=== PATIENT | female | born 1960 | race Caucasian/White ===

== ENCOUNTER 2016-07-30 11:02 | Emergency (ER) | payer OTHER ==
[2016-07-30 11:15] VITALS: BP 122/76
--- NOTE | 2016-07-30 12:26 | UC ---
Respiratory Complaint HPI - HPI Summary HPI Summary: 56 yo female with cough x 5-7 days now wheezing has had to use her rescue inhaler - History of Current Complaint Chief Complaint: UCGeneralIllness Stated Complaint: COUGH,CONGESTION Time Seen by Provider: 07/30/16 12:07 Hx Obtained From: Patient Onset/Duration: Gradual Onset, Lasting Days Timing: Constant Severity Initially: Mild Severity Currently: Moderate Pain Intensity: 4 Pain Scale Used: 0-10 Numeric Character: Cough: Productive Aggravating Factors: Nothing Alleviating Factors: Bronchodilator Associated Signs And Symptoms: Positive: Wheezing Related History: Similar Episode/Dx as: - bronchitis - Allergies/Home Medications Allergies/Adverse Reactions: Allergies Allergy/AdvReac Type Severity Reaction Status Date / Time Erythromycin Allergy Intermediate Nausea Verified 05/21/16 15:23 NSAIDs Allergy Unknown GI Upset Verified 05/21/16 15:23 Home Medications: Home Medications Topiramate TAB(*) [Topamax(*)] 75 mg PO BEDTIME 07/30/16 [History Confirmed ] ValACYclovir (*) [Valtrex 1 GM(*)] 1 gm PO DAILY 07/30/16 [History Confirmed ] PMH/Surg Hx/FS Hx/Imm Hx Endocrine History Of: Denies: Diabetes, Thyroid Disease Cardiovascular History Of: Reports: Hypertension Denies: Cardiac Disorders, Pacemaker/ICD Respiratory History Of: Reports: Asthma, Bronchitis Denies: COPD GI/ History Of: Reports: Ulcer Denies: Renal Disease - Surgical History Surgical History: Yes Surgery Procedure, Year, and Place: TONSILS 1955,3 ,PARTIAL HYSTERECTOMY 1998 - Family History Known Family History: Positive: Cardiac Disease, Hypertension, Diabetes, Respiratory Disease Family History: no known cardiovascular issues in family lineage - Social History Alcohol Use: None Substance Use Type: None Smoking Status (MU): Never Smoked Tobacco Review of Systems Constitutional: Negative Skin: Negative Eyes: Negative ENT: Negative Respiratory: Cough Cardiovascular: Negative Gastrointestinal: Negative Genitourinary: Negative Motor: Negative Neurovascular: Negative Musculoskeletal: Negative Neurological: Negative Psychological: Negative All Other Systems Reviewed And Are Negative: Yes Physical Exam Triage Information Reviewed: Yes Appearance: Well-Appearing, No Pain Distress, Well-Nourished Vital Signs: Initial Vital Signs Temp 98.7 F 07/30/16 11:11 Pulse 103 07/30/16 11:11 Resp 16 07/30/16 11:11 BP 122/76 07/30/16 11:11 Pulse Ox 99 07/30/16 11:11 Vital Signs Reviewed: Yes Eyes: Positive: Conjunctiva Clear ENT: Positive: Hearing grossly normal, Pharynx normal. Negative: Nasal congestion, Nasal drainage, Trismus, Muffled/hoarse voice Neck: Positive: Supple, Nontender, No Lymphadenopathy Respiratory: Positive: No respiratory distress, No accessory muscle use, Respiratory distress Cardiovascular: Positive: RRR, No Murmur Musculoskeletal: Positive: ROM Intact, No Edema Neurological Exam: Normal Neurological: Positive: Alert Psychological Exam: Normal Skin Exam: Normal UC Diagnostic Evaluation - Laboratory O2 Sat by Pulse Oximetry: 99 - normal/not hypoxic Respiratory Course/Dx - Differential Dx/Diagnosis Provider Diagnoses: acute bronchitis with bronchospasm Discharge - Discharge Plan Condition: Stable Disposition: HOME Prescriptions: Amoxicillin/Clavulanate TAB* [Augmentin TAB 875*] 875 mg PO BID #14 tab Fluconazole 150 MG (NF) [Diflucan 150 mg (NF)] 150 mg PO ONCE #1 tab Prednisone [Deltasone] 40 mg PO DAILY #10 tab Patient Education Materials: Acute Bronchitis (ED) Referrals: JAIME Barksdale [Primary Care Provider] - 4 Days (if not better) Additional Instructions: use your rescue inhaler as directed
== END 2016-07-30 12:24 | disposition home or self-care (01) ==
LOC: UCCORT 11:02
DX: J20.9 Acute bronchitis, unspecified (principal); Z88.6 Allergy status to analgesic agent; Z88.1 Allergy status to other antibiotic agents
CPT/HCPCS: 99212; G0463

== ENCOUNTER 2016-08-22 13:33 | Emergency (ER) | payer OTHER ==
[2016-08-22 13:56] VITALS: BP 121/72
--- NOTE | 2016-08-22 14:22 | UC ---
Throat Pain/Nasal Jun HPI - HPI Summary HPI Summary: This is a 56 yo female with h/o asthma, HTN, fibromyalgia who presents with a 1 week h/o BURNS, ear pain, sinus pain/pressure, sore throat, nasal congestion and cough. She reports her teeth hurt. She was treated for acute bronchitis with Augmentin ~ 4weeks ago. She reports those symptoms resolved and this is now a new complaint. She is unsure if she's been running fevers at home. She has associated nausea and poor appetite but no vomiting or diarrhea. She was recently referred to an healthcare science specialist. She has multiple environmental allergies noted. [employer] Faculty Assistant recommended a new inhaler and antihistamine. The Rxs were called in yesterday and she has not been able to pick them up yet. - History of Current Complaint Chief Complaint: UCGeneralIllness Stated Complaint: SINUS,COUGH,EAR PAIN - Allergies/Home Medications Allergies/Adverse Reactions: Allergies Allergy/AdvReac Type Severity Reaction Status Date / Time Erythromycin Allergy Intermediate Nausea Verified 05/21/16 15:23 NSAIDs Allergy Unknown GI Upset Verified 05/21/16 15:23 PMH/Surg Hx/FS Hx/Imm Hx Previously Healthy: No Endocrine History Of: Denies: Diabetes, Thyroid Disease Cardiovascular History Of: Reports: Hypertension Denies: Cardiac Disorders, Pacemaker/ICD Respiratory History Of: Reports: Asthma, Bronchitis Denies: COPD GI/ History Of: Reports: Ulcer Denies: Renal Disease - Surgical History Surgical History: Yes Surgery Procedure, Year, and Place: TONSILS 1954,3 ,PARTIAL HYSTERECTOMY 1998 - Family History Known Family History: Positive: Cardiac Disease, Hypertension, Diabetes, Respiratory Disease - Social History Alcohol Use: None Substance Use Type: None Smoking Status (MU): Never Smoked Tobacco Review of Systems Constitutional: Chills, Fatigue Skin: Negative Eyes: Negative ENT: Dental Pain, Sore Throat, Ear Ache, Nasal Discharge Respiratory: Cough Cardiovascular: Negative Gastrointestinal: Other - nausea Genitourinary: Negative Motor: Negative Neurovascular: Negative Musculoskeletal: Negative Neurological: Negative Psychological: Negative All Other Systems Reviewed And Are Negative: Yes Physical Exam Triage Information Reviewed: Yes Appearance: Well-Appearing Vital Signs: Initial Vital Signs Temp 98.0 F 08/22/16 13:50 Pulse 93 08/22/16 13:50 Resp 16 08/22/16 13:50 BP 121/72 08/22/16 13:50 Pulse Ox 99 08/22/16 13:50 Vital Signs Reviewed: Yes Eyes: Positive: Conjunctiva Clear ENT: Positive: Pharynx normal, Nasal congestion, TMs normal - mild effusion noted, Other: - TTP over frontal and maxillary sinuses. Negative: Tonsillar swelling, Tonsillar exudate Neck: Positive: Supple, Enlarged Nodes @ - anterior cervical nodes bilaterally Respiratory: Positive: Lungs clear, Normal breath sounds Cardiovascular: Positive: RRR, No Murmur Abdomen Description: Positive: Nontender Musculoskeletal: Positive: Strength Intact Neurological: Positive: Alert Psychological Exam: Normal Throat Pain/Nasal Course/Dx - Course Course Of Treatment: This a 56 yo female with a week h/o worsening BURNS, dental pain, nausea, nasal congestion and ear pain. Presention consistent with sinusitis, allergic v bacterial. She was recently seen by an healthcare science specialist and will initiate new medications per their recommendations. Will treat for acute bacterial sinusitis at this time. Augmentin within 30 days, will prescribe Bactrim. - Differential Dx/Diagnosis Differential Diagnosis/HQI/PQRI: Laryngitis, Pharyngitis, Sinusitis, URI, Other - allergic rhinitis Provider Diagnoses: Acute sinusitis Discharge - Discharge Plan Condition: Stable Disposition: HOME Prescriptions: Fluconazole [Diflucan 150 MG (NF)] 150 mg PO ONCE #1 tab Sulfamethox/Trimethoprim DS* [Bactrim DS 800/160 TAB*] 1 tab PO BID #20 tab Patient Education Materials: Sinusitis (ED) Referrals: JAIME Barksdale [Primary Care Provider] - Additional Instructions: Activity: As tolerated Instructions: 1. Please take antibiotics as directed 2. Use the diflucan if necessary for associated yeast infection 3. Please follow allergists recommendations on your inhalers and antihistamines
== END 2016-08-22 14:29 | disposition home or self-care (01) ==
LOC: UCCORT 13:33
DX: J01.90 Acute sinusitis, unspecified (principal); Z88.6 Allergy status to analgesic agent; Z88.1 Allergy status to other antibiotic agents
CPT/HCPCS: 99212; G0463

== ENCOUNTER 2016-10-26 15:10 | Emergency (ER) | payer OTHER ==
[2016-10-26 15:37] VITALS: BP 140/79
--- NOTE | 2016-10-26 16:39 | UC ---
Complaint Female HPI - HPI Summary HPI Summary: 1.LOWER ABDOMINAL PRESSURE X 3 WEEKS, + DYSURIA, FREQUENCY NO FEVER, NO CHILLS, NO FLANK PAIN 2. NASAL CONGESTION, COUGH, SORE THROAT - History Of Current Complaint Chief Complaint: UCGeneralIllness Stated Complaint: URINARY/SINUS COMPLAINT Time Seen by Provider: 10/26/16 15:51 Hx Obtained From: Patient Onset/Duration: Gradual Onset, Lasting Weeks - 3, Still Present Timing: Constant Severity Initially: Moderate Severity Currently: Moderate Pain Intensity: 6 Pain Scale Used: 0-10 Numeric Character: Burning Aggravating Factor(s): Urination Alleviating Factor(s): Nothing Associated Signs And Symptoms: Negative: Fever, Vaginal Bleeding/Discharge, Vaginal Discharge, Nausea, Vomiting(# Of Episodes =), Genital Swelling, Genital Blisters, Retained Foregin Body (Specify) - Allergies/Home Medications Allergies/Adverse Reactions: Allergies Allergy/AdvReac Type Severity Reaction Status Date / Time Erythromycin Allergy Intermediate Nausea Verified 10/26/16 15:37 NSAIDs Allergy Unknown GI Upset Verified 10/26/16 15:37 Home Medications: Home Medications Acetaminophen [Acetaminophen Extra Stren] 100 mg PO Q6H PRN 10/26/16 [History Confirmed 10/26/16] Mometasone 110 MCG MDI * [Asmanex 110 MCG MDI *] 1 puff INH DAILY 10/26/16 [ History Confirmed 10/26/16] PMH/Surg Hx/FS Hx/Imm Hx Endocrine History Of: Denies: Diabetes, Thyroid Disease Cardiovascular History Of: Reports: Hypertension Denies: Cardiac Disorders, Pacemaker/ICD Respiratory History Of: Reports: Asthma, Bronchitis Denies: COPD GI/ History Of: Reports: Ulcer Denies: Renal Disease - Surgical History Surgical History: Yes Surgery Procedure, Year, and Place: TONSILS 1954,3 ,PARTIAL HYSTERECTOMY 1998 - Family History Known Family History: Positive: Cardiac Disease, Hypertension, Diabetes, Respiratory Disease Family History: no known cardiovascular issues in family lineage - Social History Alcohol Use: None Substance Use Type: None Smoking Status (MU): Never Smoked Tobacco Review of Systems Constitutional: Negative Skin: Negative Eyes: Negative ENT: Sore Throat, Nasal Discharge Respiratory: Cough Cardiovascular: Negative Gastrointestinal: Negative Genitourinary: Dysuria, Frequency, Urgency All Other Systems Reviewed And Are Negative: Yes Physical Exam Triage Information Reviewed: Yes Appearance: Well-Appearing, No Pain Distress, Well-Nourished Vital Signs: Initial Vital Signs Temp 98.2 F 10/26/16 15:27 Pulse 88 10/26/16 15:27 Resp 14 10/26/16 15:27 BP 140/79 10/26/16 15:27 Pulse Ox 99 10/26/16 15:27 Vital Signs Reviewed: Yes Eyes: Positive: Conjunctiva Clear ENT: Positive: Normal ENT inspection, Hearing grossly normal, Pharynx normal Neck: Positive: Supple, Nontender, No Lymphadenopathy Respiratory: Positive: Chest non-tender, Lungs clear, Normal breath sounds Cardiovascular: Positive: RRR, No Murmur, Pulses Normal Abdominal Exam: Normal Abdomen Description: Positive: Nontender, Soft. Negative: CVA Tenderness (R), CVA Tenderness (L) Bowel Sounds: Positive: Present Complaint Female Dx - Differential Dx/Diagnosis Provider Diagnoses: DYSURIA. URI Discharge - Discharge Plan Condition: Stable Disposition: HOME Prescriptions: Ciprofloxacin TAB* [Cipro 250 MG Tab*] 250 mg PO BID #14 tab Fluconazole 150 MG (NF) [Diflucan 150 mg (NF)] 150 mg PO ONCE #1 tab Patient Education Materials: Upper Respiratory Infection (ED), Dysuria (ED) Referrals: JAIME Barksdale [Primary Care Provider] - 5 Days
== END 2016-10-26 16:16 | disposition home or self-care (01) ==
LOC: UCCORT 15:10
DX: R30.0 Dysuria (principal); J06.9 Acute upper respiratory infection, unspecified; I10 Essential (primary) hypertension; J45.909 Unspecified asthma, uncomplicated; Z88.6 Allergy status to analgesic agent; Z88.1 Allergy status to other antibiotic agents; Z90.711 Acquired absence of uterus with remaining cervical stump
CPT/HCPCS: 81003; 99212; G0463

== ENCOUNTER 2017-02-25 10:41 | Emergency (ER) | payer OTHER ==
[2017-02-25 10:55] VITALS: BP 108/66
--- NOTE | 2017-02-25 11:20 | UC ---
Throat Pain/Nasal Ujn HPI - HPI Summary HPI Summary: TWO WEEKS OF SINUS CONGESTION FACIAL PRESSURE (WORSE IN LEFT MAXILLA), HEADACHE. COUGH WORSE IN MORNING - History of Current Complaint Chief Complaint: UCGeneralIllness Stated Complaint: SINUS COMPLAINT Time Seen by Provider: 02/25/17 10:47 Hx Obtained From: Patient Onset/Duration: Gradual Onset, Lasting Weeks, Still Present Severity: Moderate Cough: Nonproductive Associated Signs & Symptoms: Positive: Hoarseness, Sinus Discomfort, Nasal Discharge - Epiglottits Risk Factors Epiglottis Risk Factors: Negative - Allergies/Home Medications Allergies/Adverse Reactions: Allergies Allergy/AdvReac Type Severity Reaction Status Date / Time Erythromycin AdvReac Intermediate Nausea Verified 02/25/17 10:49 NSAIDs AdvReac Unknown GI Upset Verified 02/25/17 10:49 Home Medications: Home Medications Metoclopramide TAB* [Reglan TAB*] 10 mg PO Q8H 02/25/17 [History Confirmed 02/25] Pancrelipase (NF) [Creon (NF)] 24,000 units PO QID WITH FOOD 02/25/17 [History Confirmed 02/25/17] Pentosan Polysulfate Sod (NF) [Elmiron (NF)] 100 mg PO TID 02/25/17 [History Confirmed 02/25/17] busPIRone TAB* [Buspar TAB *] 15 mg PO TID 02/25/17 [History Confirmed 02/25/17] PMH/Surg Hx/FS Hx/Imm Hx Previously Healthy: Yes - Surgical History Surgical History: Yes Surgery Procedure, Year, and Place: TONSILS 1955,3 ,PARTIAL HYSTERECTOMY 1998 - Family History Known Family History: Positive: Cardiac Disease, Hypertension, Diabetes, Respiratory Disease Family History: no known cardiovascular issues in family lineage - Social History Occupation: Student Lives: With Family Alcohol Use: None Substance Use Type: None Smoking Status (MU): Never Smoked Tobacco - Immunization History Most Recent Influenza Vaccination: Not the 2016/2017 Season Review of Systems Constitutional: Negative Skin: Negative Eyes: Negative ENT: Nasal Discharge, Sinus Congestion, Sinus Pain/Tenderness Respiratory: Cough Cardiovascular: Negative Gastrointestinal: Negative Genitourinary: Negative Motor: Negative Neurovascular: Negative Musculoskeletal: Negative Neurological: Negative Psychological: Negative Is Patient Immunocompromised?: No All Other Systems Reviewed And Are Negative: Yes Physical Exam Triage Information Reviewed: Yes Appearance: Well-Appearing, No Pain Distress, Well-Nourished Vital Signs: Initial Vital Signs Temp 98.7 F 02/25/17 10:48 Pulse 88 02/25/17 10:48 Resp 16 02/25/17 10:48 BP 108/66 02/25/17 10:48 Pulse Ox 99 02/25/17 10:48 Vital Signs Reviewed: Yes Eye Exam: Normal ENT: Positive: Pharynx normal, Nasal congestion, TM bulging, TM dull Dental Exam: Normal Neck exam: Normal Neck: Positive: Supple, Nontender, No Lymphadenopathy Respiratory Exam: Normal Respiratory: Positive: Chest non-tender, Lungs clear, Normal breath sounds, No respiratory distress, No accessory muscle use Cardiovascular Exam: Normal Cardiovascular: Positive: RRR, No Murmur, Pulses Normal Abdominal Exam: Normal Musculoskeletal Exam: Normal Musculoskeletal: Positive: Strength Intact, ROM Intact Neurological Exam: Normal Psychological Exam: Normal Skin Exam: Normal Throat Pain/Nasal Course/Dx - Differential Dx/Diagnosis Differential Diagnosis/HQI/PQRI: Sinusitis, Tonsillitis, URI Provider Diagnoses: SINUSITIS Discharge - Discharge Plan Condition: Stable Disposition: HOME Prescriptions: Amoxicillin/Clavulanate TAB* [Augmentin TAB 875*] 875 mg PO BID #20 tab Benzonatate CAP* [Tessalon 100 MG CAP*] 100 mg PO TID PRN #15 cap PRN Reason: Cough Fluconazole [Diflucan 150 MG (NF)] 150 mg PO ONCE #1 tab Patient Education Materials: Sinusitis (ED) Referrals: Marcy Desir PA [Primary Care Provider] -
== END 2017-02-25 11:13 | disposition home or self-care (01) ==
LOC: UCCORT 10:41
DX: J32.9 Chronic sinusitis, unspecified (principal)
CPT/HCPCS: 99212; G0463

== ENCOUNTER 2017-03-27 11:22 | Emergency (ER) | payer OTHER ==
[2017-03-27 12:38] VITALS: BP 110/75
--- NOTE | 2017-05-17 10:07 | UC ---
Syncope/New Syncope HPI - HPI Summary HPI Summary: Patient presents with cc of pain in right foot after falling during a syncopal episode last evening. She has had at least 3 other episodes of fainting. She would find herself on the floor, would get up and continue to go to bathroom. Hit head once. No feeling of dizziness. No bleeding. No previous fainting. Was recently started on Baclofen. Also takes neurontin and Trazodone, Topamax, Buspar and metoprolol, which may also contribute to dizziness. No chest pain or dyspnea. No fever. Has pain in right knee, foot, and soreness to forehead. Denies palpitations. - History Of Current Complaint Chief Complaint: UCGeneralIllness Stated Complaint: FOOT INJURY Time Seen by Provider: 03/27/17 12:18 Hx Obtained From: Patient ?: No - post laureano. Onset/Duration: Sudden Onset Activity At Onset: Other - Was walking to BR. Timing: Intermittent Episode Lasting Frequency: Episodes x___ - 4, Episodes Lasting ____ (in Mins/Days/Weeks/Years) - unknown, but likely seconds to minutes. The pain is constant since fall last PM. Context: Unwitnessed Associated Head Trauma: Yes Pain Intensity: 0 Pain Scale Used: 0-10 Numeric - 7 Aggravating Factor(s): Position Change, Other - weight bearing. Associated Signs And Symptoms: Positive: Dizzy, Head Trauma (Recent), Pain - Risk Factors Cardiac Risk Factors: Hypertension Dysrhythmia Risk Factors: Negative Risk Factor(s): Negative - Recent tly started Baclofen 3 days Prior. - Allergies/Home Medications Allergies/Adverse Reactions: Allergies Allergy/AdvReac Type Severity Reaction Status Date / Time Erythromycin AdvReac Intermediate Nausea Verified 05/11/17 14:12 NSAIDs AdvReac Unknown GI Upset Verified 05/11/17 14:12 avoids clarithromycin Allergy See Comment Uncoded 05/11/17 14:12 PMH/Surg Hx/FS Hx/Imm Hx Previously Healthy: No Cardiovascular History: Hypertension Respiratory History: Asthma GI/ History: Ulcer Psychological History: Anxiety - Surgical History Surgical History: Yes - T& A Surgery Procedure, Year, and Place: TONSILS 1954,3 ,PARTIAL HYSTERECTOMY 1998 - Family History Known Family History: Positive: Cardiac Disease, Hypertension, Diabetes, Respiratory Disease Family History: no known cardiovascular issues in family lineage - Social History Lives: With Family Alcohol Use: None Substance Use Type: None Smoking Status (MU): Never Smoked Tobacco - Immunization History Most Recent Influenza Vaccination: Not the Season Review of Systems Constitutional: Negative Skin: Negative Eyes: Negative ENT: Negative Respiratory: Negative Cardiovascular: Negative Gastrointestinal: Negative Genitourinary: Negative Motor: Negative Neurovascular: Negative Musculoskeletal: Other: - Has some pain in right knee, right foot and tenderness to forehead. Neurological: Other - syncope with feeling of room spinning and falls with loss of consciousness. Psychological: Negative Is Patient Immunocompromised?: Yes All Other Systems Reviewed And Are Negative: Yes Physical Exam Triage Information Reviewed: Yes Appearance: Well-Appearing, Well-Nourished Vital Signs: Initial Vital Signs Temp 97.8 F 03/27/17 11:50 Pulse 88 03/27/17 11:50 Resp 18 03/27/17 11:50 BP 110/75 03/27/17 11:50 Pulse Ox 97 03/27/17 11:50 Vital Signs Reviewed: Yes Eye Exam: Normal Eyes: Positive: Conjunctiva Clear ENT Exam: Normal ENT: Positive: Hearing grossly normal, Pharynx normal, TMs normal - no hemotympanum Dental Exam: Normal Neck exam: Normal Neck: Positive: Supple, Nontender, No Lymphadenopathy Respiratory Exam: Normal Respiratory: Positive: Chest non-tender, Lungs clear, Normal breath sounds Cardiovascular Exam: Normal Cardiovascular: Positive: RRR, No Murmur, Pulses Normal, Brisk Capillary Refill Abdominal Exam: Normal Abdomen Description: Positive: Nontender, No Organomegaly, Soft Bowel Sounds: Positive: Present Musculoskeletal: Positive: Strength Intact, ROM Intact, No Edema - No deformities. Mild tenederness to dorsal foot and anterior knee on right. Mild tenderness to forehead. Normal ROM of all exterem. and normal power 5/5 in all extremities. Good color to extrem. Neurological Exam: Normal Neurological: Positive: Alert, Muscle Tone Normal Psychological Exam: Normal Psychological: Positive: Age Appropriate Behavior Skin Exam: Normal Diagnostics - EKG Cardiac Rate: NL Cardiac Rhythm: Sinus: Normal Ectopy: None ST Segment: Normal Syncope Course/Dx - Differential Dx/Diagnosis Differential Diagnosis/HQI/PQRI: Transient Ischemic Attack, Vasovagal Episode, Other - Possible reaction to medications. Provider Diagnoses: Multiple syncopal episodes. Contusions. - Physician Notification/Consults Instructed by Provider To: Transfer - to ER for further evaluation and care of syncopal episodes and head trauma. Discharge - Discharge Plan Condition: Stable Disposition: OTHER Discharge Disposition Comment: transfer to ER Referrals: Marcy Desir PA [Primary Care Provider] - Additional Instructions: Please go directly to [facility] for further evaluation and care for your syncopal episodes.
== END 2017-03-27 12:57 ==
LOC: UCCORT 11:22
DX: R55 Syncope and collapse (principal); M25.561 Pain in right knee; M79.671 Pain in right foot; G50.1 Atypical facial pain; T14.8XXA Other injury of unspecified body region, initial encounter; W18.30XA Fall on same level, unspecified, initial encounter; Y93.9 Activity, unspecified; Y92.9 Unspecified place or not applicable; I10 Essential (primary) hypertension; J45.909 Unspecified asthma, uncomplicated; F41.9 Anxiety disorder, unspecified; Z88.6 Allergy status to analgesic agent; Z88.1 Allergy status to other antibiotic agents
CPT/HCPCS: 93005; 99212; G0463

== ENCOUNTER 2017-04-02 12:34 | Emergency (ER) | payer OTHER ==
[2017-04-02 13:59] VITALS: BP 141/84
--- NOTE | 2017-04-02 14:48 | UC ---
Respiratory Complaint HPI - HPI Summary HPI Summary: 56 yo female presents here with cough x 3 weeks wheezing and using her rescue inhaler no f/c no cp or sob also c/o right hemipelvis pain after a fall which occurred one week ago broke her toe with that fall - History of Current Complaint Chief Complaint: UCRespiratory Stated Complaint: UPPER RESPIRATORY Time Seen by Provider: 04/02/17 14:36 Hx Obtained From: Patient Onset/Duration: Gradual Onset, Lasting Days Timing: Constant Severity Initially: Moderate Severity Currently: None Pain Intensity: 8 - right pelvis Pain Scale Used: 0-10 Numeric Character: Cough: Nonproductive Aggravating Factors: Exertion, Deep Breaths Alleviating Factors: Bronchodilator Associated Signs And Symptoms: Positive: Wheezing, Nasal Congestion, Sinus Discomfort Related History: Similar Episode/Dx as: - bronchitis - Allergies/Home Medications Allergies/Adverse Reactions: Allergies Allergy/AdvReac Type Severity Reaction Status Date / Time Erythromycin AdvReac Intermediate Nausea Verified 04/02/17 14:00 NSAIDs AdvReac Unknown GI Upset Verified 04/02/17 14:00 avoids clarithromycin Allergy See Comment Uncoded 04/02/17 14:07 Home Medications: Home Medications traMADol TAB* [Ultram*] 12.5 mg PO Q6HR PRN 04/02/17 [History Confirmed 04/02/17 ] PMH/Surg Hx/FS Hx/Imm Hx Previously Healthy: Yes Cardiovascular History: Hypertension Respiratory History: Asthma, Bronchitis, Pneumonia GI/ History: Gastroesophageal Reflux Neurological History: Migraine Psychological History: Anxiety, Depression - Surgical History Surgical History: Yes Surgery Procedure, Year, and Place: TONSILS 1955, 3 C-SECTIONS,PARTIAL HYSTERECTOMY 1998 - Family History Known Family History: Positive: Cardiac Disease, Hypertension, Diabetes, Respiratory Disease Family History: no known cardiovascular issues in family lineage - Social History Alcohol Use: None Substance Use Type: None Smoking Status (MU): Never Smoked Tobacco - Immunization History Most Recent Influenza Vaccination: Not the 2017/2017 Season Review of Systems Constitutional: Negative Skin: Negative Eyes: Negative ENT: Nasal Discharge, Sinus Congestion, Sinus Pain/Tenderness Respiratory: Cough Cardiovascular: Negative Gastrointestinal: Negative Genitourinary: Negative Motor: Negative Neurovascular: Negative Musculoskeletal: Arthralgia, Myalgia Neurological: Negative Psychological: Negative Is Patient Immunocompromised?: No All Other Systems Reviewed And Are Negative: Yes Physical Exam Triage Information Reviewed: Yes Appearance: Well-Appearing, No Pain Distress, Well-Nourished Vital Signs: Initial Vital Signs Temp 98.6 F 04/02/17 13:37 Pulse 92 04/02/17 13:37 Resp 20 04/02/17 13:37 BP 141/84 04/02/17 13:37 Pulse Ox 97 04/02/17 13:37 Eyes: Positive: Conjunctiva Clear ENT: Positive: Pharynx normal, Nasal congestion, Nasal drainage, TMs normal, Other: - bilateral max sinus tenderness. Negative: Hearing grossly normal - right hearing aid, Tonsillar swelling, Tonsillar exudate, Trismus, Muffled/ hoarse voice Neck: Positive: Supple, Nontender, No Lymphadenopathy Respiratory: Positive: No respiratory distress, No accessory muscle use, Wheezing Cardiovascular: Positive: RRR Abdominal Exam: Normal Bowel Sounds: Positive: Present Musculoskeletal Exam: Normal Musculoskeletal: Positive: ROM Intact, No Edema Neurological Exam: Normal Neurological: Positive: Alert Psychological Exam: Normal Skin Exam: Normal UC Diagnostic Evaluation - Laboratory O2 Sat by Pulse Oximetry: 97 - normal/not hypoxic - Radiology Xray Interpretation: No Acute Changes Radiology Interpretation Completed By: Radiologist Respiratory Course/Dx - Differential Dx/Diagnosis Provider Diagnoses: ACUTE BRONCHITIS WITH BRONCHOSPASM. RIGHT BUTTOCK CONTUSION Discharge - Discharge Plan Condition: Stable Disposition: HOME Prescriptions: Amoxicillin/Clavulanate TAB* [Augmentin TAB 875*] 875 mg PO BID #14 tab Prednisone [Deltasone] 40 mg PO DAILY #10 tab Patient Education Materials: Acute Bronchitis (ED), Bronchospasm (ED), Contusion in Adults (ED) Referrals: Marcy Desir PA [Primary Care Provider] - 6 Days Additional Instructions: use your inhaler 2 puffs 4x day as needed for wheezing
--- NOTE | 2017-04-02 15:10 | RAD ---
Indication: Right pelvic pain. Single view of the pelvis demonstrates no fracture. No other bone or joint abnormality is identified. IMPRESSION: No fracture of the pelvis is noted.
== END 2017-04-02 15:45 | disposition home or self-care (01) ==
LOC: UCCORT 12:34
DX: S30.0XXA Contusion of lower back and pelvis, initial encounter (principal); X58.XXXA Exposure to other specified factors, initial encounter; R10.2 Pelvic and perineal pain; I10 Essential (primary) hypertension; F41.8 Other specified anxiety disorders; J40 Bronchitis, not specified as acute or chronic; Z88.6 Allergy status to analgesic agent; Z88.1 Allergy status to other antibiotic agents
CPT/HCPCS: 72170; 99212; G0463

== ENCOUNTER 2017-05-11 13:46 | Emergency (ER) | payer OTHER ==
--- NOTE | 2017-05-11 14:09 | UC ---
Respiratory Complaint HPI - HPI Summary HPI Summary: 57 YEAR OLD FEMALE PRESENTS WITH COMPLAINS OF COUGH AND SORE THROAT. - History of Current Complaint Chief Complaint: UCRespiratory Stated Complaint: CHEST LUPE Time Seen by Provider: 05/11/17 14:09 Hx Obtained From: Patient Onset/Duration: Sudden Onset Severity Initially: Moderate Severity Currently: Moderate - Allergies/Home Medications Allergies/Adverse Reactions: Allergies Allergy/AdvReac Type Severity Reaction Status Date / Time Erythromycin AdvReac Intermediate Nausea Verified 05/11/17 14:12 NSAIDs AdvReac Unknown GI Upset Verified 05/11/17 14:12 avoids clarithromycin Allergy See Comment Uncoded 05/11/17 14:12 Home Medications: Home Medications buPROPion SR TAB* [Wellbutrin SR TAB*] 150 mg PO BID 05/11/17 [History Confirmed 05/11/17] PMH/Surg Hx/FS Hx/Imm Hx Previously Healthy: Yes - Surgical History Surgical History: Yes Surgery Procedure, Year, and Place: TONSILS 1954, 3 C-SECTIONS,PARTIAL HYSTERECTOMY 1998 - Family History Known Family History: Positive: Cardiac Disease, Hypertension, Diabetes, Respiratory Disease Family History: no known cardiovascular issues in family lineage - Social History Alcohol Use: None Substance Use Type: None Smoking Status (MU): Never Smoked Tobacco - Immunization History Most Recent Influenza Vaccination: Not the 2016/2017 Season Review of Systems Constitutional: Negative Skin: Negative Eyes: Negative ENT: Sore Throat, Nasal Discharge, Sinus Congestion, Sinus Pain/Tenderness Respiratory: Negative Cardiovascular: Negative Gastrointestinal: Negative Genitourinary: Negative Motor: Negative Neurovascular: Negative Musculoskeletal: Negative Neurological: Negative Psychological: Negative All Other Systems Reviewed And Are Negative: Yes Physical Exam Triage Information Reviewed: Yes Vital Signs Reviewed: Yes Eye Exam: Normal ENT: Positive: Pharyngeal erythema, Nasal congestion, Nasal drainage Dental Exam: Normal Neck exam: Normal Neck: Positive: 1 Respiratory Exam: Normal Respiratory: Positive: Wheezing Cardiovascular Exam: Normal Abdominal Exam: Normal Musculoskeletal Exam: Normal Neurological Exam: Normal Psychological Exam: Normal Skin Exam: Normal Respiratory Course/Dx - Differential Dx/Diagnosis Provider Diagnoses: COUGH. POST NASAL DRIP Discharge - Discharge Plan Condition: Stable Disposition: HOME Prescriptions: Amoxicillin/Clavulanate TAB* [Augmentin TAB 875*] 875 mg PO BID #20 tab Benzonatate [TESSALON 200 MG CAP] 200 mg PO TID PRN #30 cap PRN Reason: Cough Guaifenesin-Codeine [Cheratussin AC] 1 teasp PO BEDTIME PRN #120 ml MDD 5 ml PRN Reason: Cough LoraTADine TAB(NF) [Claritin 10 MG TAB(NF)] 10 mg PO DAILY #30 tab Patient Education Materials: Allergic Rhinitis (ED), Acute Cough (ED) Referrals: Marcy Desir PA [Primary Care Provider] -
[2017-05-11 14:19] VITALS: BP 119/76
== END 2017-05-11 14:43 | disposition home or self-care (01) ==
LOC: UCCORT 13:46
DX: R05 Cough (principal); R09.82 Postnasal drip; Z88.6 Allergy status to analgesic agent; Z88.1 Allergy status to other antibiotic agents
CPT/HCPCS: 99212; G0463

== ENCOUNTER 2017-09-04 10:16 | Emergency (ER) | payer OTHER ==
[2017-09-04 11:29] VITALS: BP 126/82
--- NOTE | 2017-09-04 12:04 | UC ---
Respiratory Complaint HPI - HPI Summary HPI Summary: 1.5 WEEKS OF COUGH, CONGESTION, BURNS AND SINUS PRESSURE. HAS SOME EAR PRESSURE. NO FEVER OR NASAL DRAINAGE. STATES SHE GETS SINUSITIS FREQUENTLY AND IS REQUESTING AUGMENTIN. - History of Current Complaint Chief Complaint: UCGeneralIllness Stated Complaint: SINUSES,COUGH,CONGESTION Time Seen by Provider: 09/04/17 11:36 Hx Obtained From: Patient Onset/Duration: Gradual Onset, Lasting Days, Still Present Timing: Constant Severity Initially: Moderate Severity Currently: Moderate Pain Intensity: 8 Pain Scale Used: 0-10 Numeric Character: Cough: Nonproductive Aggravating Factors: Nothing Alleviating Factors: Nothing Associated Signs And Symptoms: Positive: URI, Nasal Congestion, Sinus Discomfort. Negative: Dyspnea, Fever, Chills, Pleuritic Chest Pain, Wheezing, Hemoptysis - Allergies/Home Medications Allergies/Adverse Reactions: Allergies Allergy/AdvReac Type Severity Reaction Status Date / Time erythromycin base AdvReac Nausea Verified 09/04/17 11:21 NSAIDS (Non-Steroidal AdvReac GI Upset Verified 09/04/17 11:21 Anti-Inflamma avoids clarithromycin Allergy See Comment Uncoded 05/27/17 12:06 Home Medications: Home Medications Metoprolol Succinate XL TAB* [Toprol XL TAB*] 100 mg PO DAILY 09/04/17 [History Confirmed 09/04/17] Pantoprazole TAB (NF) [Protonix TAB (NF)] 40 mg PO BID 09/04/17 [History Confirmed 09/04/17] Raloxifene HCl [Evista] 60 mg PO DAILY 09/04/17 [History Confirmed 09/04/17] Sertraline* [Zoloft*] 50 mg PO DAILY 09/04/17 [History Confirmed 09/04/17] PMH/Surg Hx/FS Hx/Imm Hx - Additional Past Medical History Additional PMH: FIBROMYALGIA Cardiovascular History: Hypertension Respiratory History: Asthma Other GI/ History: IBS Neurological History: Migraine - Surgical History Surgical History: Yes Surgery Procedure, Year, and Place: TONSILS 1955, 3 C-SECTIONS,PARTIAL HYSTERECTOMY 1998 - Family History Known Family History: Positive: Cardiac Disease, Hypertension, Diabetes, Respiratory Disease - Social History Alcohol Use: None Substance Use Type: None Smoking Status (MU): Never Smoked Tobacco Household Exposure Type: Cigarettes - Immunization History Most Recent Influenza Vaccination: Not the 2016/2018 Season Review of Systems Constitutional: Negative ENT: Ear Ache, Nasal Discharge, Sinus Congestion Respiratory: Cough Cardiovascular: Negative Gastrointestinal: Negative Neurological: Headache All Other Systems Reviewed And Are Negative: Yes Physical Exam Triage Information Reviewed: Yes Appearance: Well-Appearing, No Pain Distress, Well-Nourished Vital Signs: Initial Vital Signs Temp 99 F 09/04/17 11:20 Pulse 98 09/04/17 11:20 Resp 14 09/04/17 11:20 BP 126/82 09/04/17 11:20 Pulse Ox 99 09/04/17 11:20 Vital Signs Reviewed: Yes Eyes: Positive: Conjunctiva Clear ENT: Positive: Hearing grossly normal, Pharynx normal, TMs normal Neck: Positive: Supple, Nontender, No Lymphadenopathy Respiratory Exam: Normal Cardiovascular Exam: Normal Abdomen Description: Positive: Soft Musculoskeletal: Positive: No Edema Neurological: Positive: Alert Psychological: Positive: Age Appropriate Behavior Skin: Negative: rashes UC Diagnostic Evaluation - Laboratory O2 Sat by Pulse Oximetry: 99 Respiratory Course/Dx - Course Course Of Treatment: LONG DISCUSSION ABOUT DISADVANTAGES OF UNNECESSARY ANTIBIOTIC TREATMENT. PT IS INSISTING SHE NEEDS AUGMENTIN. ADVISED TO F/U WITH ENT AND PCP. - Differential Dx/Diagnosis Provider Diagnoses: ACUTE URI Discharge - Sign-Out/Discharge Documenting (check all that apply): Discharge - Discharge Plan Condition: Stable Disposition: HOME Prescriptions: Amoxicillin/Clavulanate TAB* [Augmentin TAB 875*] 875 mg PO BID #20 tab Fluconazole [Diflucan] 1 tab PO ONCE #2 tab Patient Education Materials: Upper Respiratory Infection (ED) Referrals: Marcy Desir PA [Primary Care Provider] - If Needed Additional Instructions: YOUR SYMPTOMS ARE LIKELY VIRALLY MEDIATED AND SHOULD RESOLVE ON THEIR OWN WITH TIME. WILL COVER YOU WITH AUGMENTIN BASED ON YOUR REQUEST BUT BE AWARE THAT FREQUENT USE OF ANTIBIOTICS WHEN THEY ARE NOT INDICATED CAN LEAD TO RESISTANCE IN YOURSELF AND THE GENERAL COMMUNITY. IF YOU ARE HAVING RECURRENT SINUS SYMPTOMS CONSIDER EVAL BY AN ENT. REST, HYDRATE, OTC MEDS NEEDED. SEEK FOLLOW -UP IF YOU ARE NOT IMPROVING OVER THE NEXT 1-2 WEEKS. - Billing Disposition and Condition Condition: STABLE Disposition: HOME
== END 2017-09-04 12:13 | disposition home or self-care (01) ==
LOC: UCCORT 10:16
DX: J06.9 Acute upper respiratory infection, unspecified (principal); Z88.1 Allergy status to other antibiotic agents; Z88.8 Allergy status to other drugs, medicaments and biological substances; I10 Essential (primary) hypertension
CPT/HCPCS: 99212; G0463

== ENCOUNTER 2019-03-13 10:17 | Emergency (ER) | payer OTHER ==
--- OUTSIDE RECORDS SUMMARY | 2019-03-13 10:51 | XMS REPORT | Continuity of Care Document ---
:1960 External Reference #:[id number] Author Name Feng Diana N.P. 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 Onset: 05/22/2017 Dizziness and giddiness Claus White M.D. Onset: 05/22/2017 Chronic fatigue syndrome Claus White M.D. Onset: 05/22/2017 Benign paroxysmal positional vertigo Claus White M.D. Onset: 07/17/2017 Abnormal involuntary movement Claus White M.D. Onset: 05/07/2018 Social History Type Date Description Comments Sex Unknown ETOH Use Denies alcohol use Tobacco Use Start: Unknown Patient has never smoked Recreational Drug Use Denies Drug Use Smoking Status Reviewed: 03/11/19 Patient has never smoked Allergies, Adverse Reactions, Alerts Active Allergies Reaction Severity Comments Date NSAIDS 05/17/2017 Erythromycin Nausea and Vomiting 05/22/2017 Medications Active Medications SIG Qnty Indications Ordering Date Provider Meclizine HCL 1 tab by mouth Unknown 25mg Chewtabs three times a day as needed Ra Anti-Diarrheal 3x a day Syam, [place], 2mg MD Tablets Cyclobenzaprine HCL once a day Unknown 10mg Tablets Flovent HFA 2 puffs daily then Unknown 110mcg/Act as needed Aerosol Benzonatate one by mouth three Unknown 200mg Capsules times daily as needed for cough Vitamin D3 1 by mouth every Unknown 5000Unit day Capsules Fish Oil 1 by mouth twice a Unknown 500mg Capsules day Multivitamin & Mineral daily Unknown Vitamin B12 1 by mouth every Unknown 100mcg Tablets day Vitamin C 1 by mouth every Unknown 500mg Capsules day Acetaminophen 2 tablets by mouth Unknown 325mg Tablets every 6 hours as needed for pain/fever Metoclopramide HCL 1 tab by mouth 3 Sathish López, 5mg times daily before MD Tablets meals Calcium 2 tab by mouth Unknown Citrate/Magnesium every pm 600/300mg Sumatriptan Succinate 1 tab by mouth at Marco Antonio Desir 100mg onset of migraine J., RPA Tablets and may repeat once in 2 hours Creon 2 caps by mouth Sathish López, [id number] Caps DR with meal Part Levalbuterol Tartrate 1 inhalation every Rhodes, 6 hours as needed MD Claus 45mcg/Act Aerosol Pantoprazole Sodium 1 by mouth daily Marco Antonio Desir 40mg J., RPA Tablets DR Fluticasone Propionate 1 spray in each Marco Antonio Desir nostril twice J., RPA 50mcg/Act Suspension daily Topiramate bid Marco Antonio Desir 50mg Tablets J., RPA Buspirone HCL 1 tab by mouth Marco Antonio Desir 15mg Tablets four times a day J., RPA Trazodone HCL 2.5 tabs by mouth Marco Antonio Desir 100mg Tablets at bedtime J., RPA Gabapentin 1 cap by mouth Marco Antonio Desir 300mg Capsules three times daily J., RPA Raloxifene HCL 1 tab by mouth Marco Antonio Desir 60mg Tablets daily J., RPA Metoprolol Succinate ER 1 tab by mouth Marco Antonio Desir daily at bedtime J., RPA 100mg Tablets ER 24HR and 1/2 tab by mouth as needed Valtrex 1 by mouth daily Unknown 1gm Tablets Immunizations Description No Information Available Vital Signs Date Vital Result Comment 03/11/2019 10:25am Height 62.5 inches 5'2.50" Weight 113.00 lb Heart Rate 89 /min BP Systolic 108 mmHg BP Diastolic 78 mmHg BMI (Body Mass Index) 20.3 kg/m2 09/24/2018 11:12am Height 62.5 inches 5'2.50" Weight 112.00 lb Heart Rate 62 /min BP Systolic 100 mmHg BP Diastolic 72 mmHg BMI (Body Mass Index) 20.2 kg/m2 Results Description No Information Available Procedures Description No Information Available Medical Devices Description No Information Available Encounters Type Date Location Provider Dx Diagnosis Office Visit 09/24/2018 [facility] Claus White, H81.10 Benign paroxysmal 11:15a [facility] vertigo, [facility] unspecified ear G93.0 Cerebral cysts R53.82 Chronic fatigue, unspecified R25.1 Tremor, unspecified Assessments Date Code Description Provider 03/11/2019 H81.10 Benign paroxysmal vertigo, unspecified ear Feng Diana , N.P. 03/11/2019 G93.0 Cerebral cysts Feng Diana, N.P. 03/11/2019 R53.82 Chronic fatigue, unspecified Feng Diana, N.P. 03/11/2019 R25.1 Tremor, unspecified Feng Diana, N.P. 03/11/2019 R42 Dizziness and giddiness Feng Diana, N.P. 03/11/2019 R51 Headache Feng Diana, N.P. 09/24/2018 H81.10 Benign paroxysmal vertigo, unspecified ear Claus White M.D. 09/24/2018 G93.0 Cerebral cysts Claus White M.D. 09/24/2018 R53.82 Chronic fatigue, unspecified Claus White M.D. 09/24/2018 R25.1 Tremor, unspecified Claus White M.D. Plan of Treatment Future Appointment(s):06/24/2019 3:00 pm - Feng Diana, N.P. at [facility]03/11/2019 - Feng Diana, N.P.H81.10 Benign paroxysmal vertigo, unspecified earNew Therapy:Physical TherapyFollow up:3 abusikL48.0 Cerebral dvtsuR43.82 Chronic fatigue, bbrwtrfepidC89.1 Tremor, [id number] Dizziness and [id number] HeadacheFollow up:3 monthsRecommendations:Riboflavin 400mg daily (vitamin b-2) call me if any new or worsening symptoms Functional Status Description No Information Available Mental Status Description No Information Available Referrals Description No Information Available
[2019-03-13 10:53] VITALS: BP 114/75
--- NOTE | 2019-03-13 11:07 | UC ---
Respiratory Complaint HPI - HPI Summary HPI Summary: Patient is a 58-year-old female, history of asthma, fibromyalgia, IBS, here with cough. Patient's had 1 week of nasal congestion, postnasal drip. Over the past 3 days, patient's developed a severe cough that is nonproductive in nature. Patient has associated chills. Patient has no fever, vomiting, change in bowel habits, inability to swallow. Patient does have some anterior chest pain when she coughs. Patient also has sore throat. Patient took Tessalon Perles at home which helped her cough. Patient uses Flovent every day and albuterol when necessary. Patient stopped taking any albuterol for this. Medications reviewed - History of Current Complaint Chief Complaint: UCRespiratory Stated Complaint: COUGH,CONGESTION Time Seen by Provider: 03/13/19 10:45 Hx Obtained From: Patient Pain Intensity: 7 - Allergies/Home Medications Allergies/Adverse Reactions: Allergies Allergy/AdvReac Type Severity Reaction Status Date / Time erythromycin base AdvReac Nausea Verified 03/13/19 10:41 NSAIDS (Non-Steroidal AdvReac GI Upset Verified 03/13/19 10:41 Anti-Inflamma Home Medications: Home Medications Acetaminophen [Acetaminophen Extra Strength] 1,000 mg PO Q6H PRN 03/13/19 [ History Confirmed 03/13/19] Cetirizine* [ZyrTEC 10 MG TAB*] 10 mg PO DAILY 03/13/19 [History Confirmed 03/13] Dicyclomine CAP* [Bentyl CAP*] 10 mg PO TID 03/13/19 [History Confirmed 03/13/19 ] Fluticasone HFA 110 mcg(NF) [Flovent HFA 110 mcg(NF)] 2 puff INH DAILY 03/13/19 [History Confirmed 03/13/19] Metoclopramide TAB* [Reglan TAB*] 5 mg PO TID 03/13/19 [History Confirmed ] PMH/Surg Hx/FS Hx/Imm Hx Previously Healthy: No Respiratory History: Asthma - Surgical History Surgical History: Yes Surgery Procedure, Year, and Place: TONSILS 1954, 3 C-SECTIONS,PARTIAL HYSTERECTOMY 1998 - Family History Known Family History: Positive: Cardiac Disease, Hypertension, Diabetes, Respiratory Disease, Non-Contributory Family History: no known cardiovascular issues in family lineage - Social History Alcohol Use: None Substance Use Type: None Smoking Status (MU): Never Smoked Tobacco Household Exposure Type: Cigarettes - Immunization History Most Recent Influenza Vaccination: Not the 2016/2017 Season Review of Systems All Other Systems Reviewed And Are Negative: Yes Constitutional: Positive: Chills. Negative: Fever ENT: Positive: Sore Throat, Nasal Discharge. Negative: Ear Ache, Sinus Congestion Respiratory: Positive: Cough. Negative: Shortness Of Breath Cardiovascular: Positive: Chest Pain Gastrointestinal: Positive: Diarrhea, Nausea. Negative: Abdominal Pain, Vomiting Genitourinary: Negative: Dysuria Physical Exam - Summary Physical Exam Summary: Vital Signs Reviewed: Yes A+Ox3, no distress Eyes: Conjunctiva Clear, PERRL. EOM intact and full ENT: Hearing grossly normal TM x 2 clear, moist, uvula midline, no exudate, no erythema Neck: Anterior cervical lymphadenopathy Respiratory: Positive: Patient speaking in full sentences. Wheezing at the bilateral bases. No decreased air entry. No retracting. Cardiovascular: RRR nl s1, s2 no m/r CBT <2 sec abd soft + BS nt/nd no guarding, no distension Musculoskeletal Exam: HAIRSTON x 4 without difficulty Strength Intact, ROM Intact Neurological: Positive: Alert, + sensation throughout Psychological: Positive: Normal Response To Family Skin: no rash, no ecchymosis Vital Signs: Initial Vital Signs Temp 97.6 F 03/13/19 10:48 Pulse 86 03/13/19 10:48 Resp 17 03/13/19 10:48 BP 114/75 03/13/19 10:48 Pulse Ox 100 03/13/19 10:48 Respiratory Course/Dx - Course Course Of Treatment: Patient is here with a mild asthma exacerbation secondary to a viral URI. Patient had an x-ray which showed no evidence of pneumonia. Patient was given a dose of Decadron here. Patient was encouraged to use her albuterol inhaler at home. Patient was discharged with a prescription for Tessalon Perles and another dose of Decadron. - Differential Dx/Diagnosis Provider Diagnosis: Asthma exacerbation, Cough Discharge ED - Sign-Out/Discharge Documenting (check all that apply): Patient Departure All imaging exams completed and their final reports reviewed: Yes - Discharge Plan Condition: Stable Disposition: HOME Prescriptions: Benzonatate CAP* [Tessalon 100 MG CAP*] 100 mg PO TID PRN #20 cap PRN Reason: Cough Dexamethasone TAB* [Decadron TAB*] 12 mg PO ONCE #3 tab Patient Education Materials: Acute Bronchitis (ED), Bronchospasm (ED) Referrals: Marcy Desir PA [Primary Care Provider] - Additional Instructions: Please continue doing Flovent Please start using her albuterol inhaler for cough Please take medications as prescribed Please go to the emergency department if you have worsening trouble breathing, worsening pain, any other concerning symptoms - Billing Disposition and Condition Condition: STABLE Disposition: Home
[2019-03-13] MEDS ORDERED: Dexamethasone TAB* 4 MG PO ONE (11:20)
== END 2019-03-13 11:35 | disposition home or self-care (01) ==
LOC: UCCORT 10:17
DX: J45.901 Unspecified asthma with (acute) exacerbation (principal); R05 Cough; Z88.1 Allergy status to other antibiotic agents; Z88.6 Allergy status to analgesic agent; Z77.22 Contact with and (suspected) exposure to environmental tobacco smoke (acute) (chronic)
CPT/HCPCS: 71046; 99212; G0463; J8540

== ENCOUNTER 2019-04-26 12:04 | Emergency (ER) | payer OTHER ==
[2019-04-26 12:16] VITALS: BP 125/78
--- NOTE | 2019-04-26 12:44 | UC ---
Abdominal Pain Female HPI - HPI Summary HPI Summary: 59 year old female with h/o IBS and fibromyalgia presents accompanied by her daughter with 8/10 pain in her left upper abdomen radiating to her left flank. States sx awoke her abruptly from sleep last night around 11 pm. Notes some nausea, no vomiting. Denies any urinary symptoms. States she always has loose bm 's and this has not recently changed. No associated fever nor chills. Denies prior abdominal surgeries. - History of Current Complaint Chief Complaint: UCGeneralIllness Stated Complaint: LEFT SIDE SHARP PAIN JUST BELOW RIB CAGE TO BACK Time Seen by Provider: 04/26/19 12:21 Onset/Duration: Sudden Onset, Lasting Hours - 9 hours Timing: Constant Pain Intensity: 9 Location: Discrete At: LUQ Radiates to: Flank - left Character: Sharp Aggravating Factor(s): Deep Breaths Alleviating Factor(s): Nothing Associated Signs and Symptoms: Positive: Nausea. Negative: Diaphoresis, Fever, Cough, Chest Pain, Constipation, Blood in Stool, Urinary Symptoms, Vaginal Bleeding, Vomiting Allergies/Adverse Reactions: Allergies Allergy/AdvReac Type Severity Reaction Status Date / Time erythromycin base AdvReac Nausea Verified 04/26/19 12:16 NSAIDS (Non-Steroidal AdvReac GI Upset Verified 04/26/19 12:16 Anti-Inflamma Home Medications: Home Medications Amoxicillin/Clavulanate TAB* [Augmentin TAB 875*] 1 tab BID 04/26/19 [History Confirmed 04/26/19] PMH/Surg Hx/FS Hx/Imm Hx Previously Healthy: Yes GI/ History: Other - IBS, denies prior hx of kidney stones. - Surgical History Surgical History: Yes Surgery Procedure, Year, and Place: TONSILS 1955, 3 C-SECTIONS,PARTIAL HYSTERECTOMY 1998 - Family History Known Family History: Positive: Cardiac Disease, Hypertension, Diabetes, Respiratory Disease, Non-Contributory Family History: no known cardiovascular issues in family lineage - Social History Alcohol Use: None Substance Use Type: None Smoking Status (MU): Never Smoked Tobacco Household Exposure Type: Cigarettes - Immunization History Most Recent Influenza Vaccination: Not the 2017/2017 Season Review of Systems All Other Systems Reviewed And Are Negative: Yes Constitutional: Negative: Fever, Chills Skin: Negative: Rash, Bruising Eyes: Positive: Negative ENT: Positive: Negative Respiratory: Negative: Shortness Of Breath, Cough Cardiovascular: Negative: Palpitations, Chest Pain Gastrointestinal: Positive: Abdominal Pain, Diarrhea - chronic, Nausea. Negative: Vomiting Genitourinary: Negative: Dysuria, Hematuria, Frequency, Urgency, Vaginal/Penile Discharge, Abnormal Bleeding Neurovascular: Positive: Negative Musculoskeletal: Positive: Negative Neurological: Positive: Negative Is Patient Immunocompromised?: No Physical Exam Triage Information Reviewed: Yes Appearance: Well-Appearing - pain rating out of proportion to appearance and exam Vital Signs: Initial Vital Signs Temp 97.8 F 04/26/19 12:09 Pulse 100 04/26/19 12:09 Resp 18 04/26/19 12:09 BP 125/78 04/26/19 12:09 Pulse Ox 98 04/26/19 12:09 Vital Signs Reviewed: Yes Eye Exam: Normal ENT: Positive: Normal ENT inspection Neck: Positive: Supple, Nontender, No Lymphadenopathy Respiratory: Positive: Lungs clear, Normal breath sounds, No respiratory distress. Negative: Crackles, Rhonchi, Wheezing Cardiovascular: Positive: RRR, No Murmur Abdomen Description: Positive: No Organomegaly, Soft, CVA Tenderness (L) - mild. Negative: Distended, Guarding, Hepatomegaly, McBurney's Point Tenderness , Peritoneal Signs, Pulsatile Mass, Splenomegaly Bowel Sounds: Positive: Present Musculoskeletal Exam: Normal Neurological Exam: Normal Psychological Exam: Normal Skin Exam: Normal Skin: Negative: Rashes, Significant Lesion(s) Diagnostics - Radiology No standard instances Radiology Interpretation Completed By: Radiologist Summary of Radiographic Findings: Meat Blender: Florencio Valadez Daniel, ( [id number]) Zone Maintenance Technician: SHAR (CHANGANCE) Report Date: 04/26/2019 12:48: 00 Report Status: Final Start of Report Content Patient Name: ALIYAH CH Medical Record#: [id number] Ordering Physician: Geovani Smallwood MD Acct.#: [id number] : 1960 Age: 59 Sex: F Location: [facility] Exam Date: 04/26/19 1248 ADM Status: REG ER Order Information: CT ABD/PEL W/O Accession Number: [id number] CPT: 86757 CLINICAL HISTORY: Left upper quadrant pain COMPARISON: None relevant available at the time of dictation. TECHNIQUE: Multiple contiguous axial CT scans were obtained of the abdomen and pelvis, without intravenous contrast enhancement. Coronal and sagittal multiplanar reformations are submitted for review. FINDINGS: LUNG BASES: The lung bases are clear. LIVER: The liver is normal in shape, size, contour, and attenuation. BILE DUCTS: There is no intrahepatic or extrahepatic biliary dilatation. GALLBLADDER: The gallbladder is normal, without pericholecystic inflammatory change. PANCREAS: The pancreas is normal, without mass or ductal dilatation. SPLEEN: Normal in size and appearance. UPPER GI TRACT : Evaluation of the gastrointestinal tract is limited by incomplete gastric distention. The upper GI tract is unremarkable. SMALL BOWEL AND MESENTERY: The small bowel is normal in contour, course, and caliber. There is no obstruction or dilatation. COLON: The colon is normal in contour, course, caliber. There is no pericolonic inflammatory change. ADRENALS: Normal bilaterally. KIDNEYS: The kidneys are normal in shape, size, contour, and axis. There is no hydronephrosis or nephrolithiasis. BLADDER: The bladder is smooth in contour. PELVIC ORGANS: The pelvic organs are not visualized. AORTA: The aorta is normal. IVC: Unremarkable LYMPH NODES: There is no lymphadenopathy by size criteria. ABDOMINAL WALL: There is no evidence for abdominal wall hernia. BONES AND SOFT TISSUES: There is a scoliotic curvature of the spine. Degenerative changes are noted. OTHER: None IMPRESSION: NO HYDRONEPHROSIS OR NEPHROLITHIASIS. NO ACUTE NONCONTRAST CT PATHOLOGY OF THE VISUALIZED ABDOMEN OR PELVIS. < Electronically signed by Florencio Valadez MD in [place]> 04/26/19 1329 Dictated By : Florencio Valadez MD Dictated Date/Time: 04/26/19 1328 Transcribed Date/Time : 04/26/19 1585 Copy to: CC:Marcy GUZMAN; Geovani Smallwood MD Imaging - [facility] Imaging - [facility] Imaging - [facility] [id number] [place] [id number] [place] [id number] ph ([phone]) ph ([phone]) ph ([phone]) End of Report Content ========= - EKG Cardiac Rate: Tachycardia Cardiac Rhythm: Sinus: Normal Ectopy: None ST Segment: Normal Summary of EKG Findings: Sinus tachycardia, otherwise normal EKG. Abd Pain Female Course/Dx - Course Course Of Treatment: Benign abdominal exam, afebrile. No significant findings on CT Abd/Pelvis. - Differential Dx/Diagnosis Differential Diagnosis: Irritable Bowel Syndrome, Urinary Tract Infection Provider Diagnosis: Abdominal pain Discharge ED - Sign-Out/Discharge Documenting (check all that apply): Patient Departure All imaging exams completed and their final reports reviewed: Yes - Discharge Plan Condition: Stable Disposition: HOME Patient Education Materials: Acute Abdominal Pain (ED) Referrals: Marcy Desir PA [Primary Care Provider] - Additional Instructions: Your examination today did not identify any concerning findings for your left upper abdominal pain. Take Tylenol as needed for pain. If your pain worsens or if you develop a fever, please report to the Emergency Department. If your symptoms persist over the next few days, follow-up with your Primary Care physician. - Billing Disposition and Condition Condition: STABLE Disposition: Home
== END 2019-04-26 13:55 | disposition home or self-care (01) ==
LOC: UCCORT 12:04
DX: R10.12 Left upper quadrant pain (principal); K58.9 Irritable bowel syndrome, unspecified; M79.7 Fibromyalgia; R11.0 Nausea; R00.0 Tachycardia, unspecified; R19.5 Other fecal abnormalities; Z88.1 Allergy status to other antibiotic agents; Z88.6 Allergy status to analgesic agent
CPT/HCPCS: 74176; 81003; 93005; 99211; G0463